=== PATIENT | male | born 1950 | race Caucasian/White ===

== ENCOUNTER 2020-12-04 05:52 | Day surgery (SDC) | payer MEDICARE, BC ==
[2020-11-27 11:42] LABS: BASOPHILS # (AUTO) 0.1 X10'3 (0-0.2); BASOPHILS % (AUTO) 0.7 % (0-1); EOSINOPHILS # (AUTO) 0.1 X10'3 (0-0.9); EOSINOPHILS % (AUTO) 1.3 % (0-6); LYMPHOCYTES # (AUTO) 2.8 X10'3 (1.1-4.8); LYMPHOCYTES % (AUTO) 39.1 % (21-51); MEAN CORPUSCULAR HEMOGLOBIN 28.8 PG (27.0-31.0); MEAN CORPUSCULAR HGB CONC 33.5 g/dL (33.0-36.5); MEAN PLATELET VOLUME 8.2 FL (7.4-10.4); MONOCYTES # (AUTO) 0.6 X10'3 (0-0.9); MONOCYTES % (AUTO) 8.2 % (2-12); NEUTROPHILS # (AUTO) 3.6 X10'3 (1.8-7.7); NEUTROPHILS % (AUTO) 50.7 % (42-75); PRE OP HEMOGLOBIN 15.1 g/dL (14.0-17.9); PRE OP PLATELET COUNT 212 X10'3 (140-440); RED BLOOD COUNT 5.23 X10'6 (4.70-6.10)
[2020-11-27 11:52] LABS: PRE OP PROTIME 10.5 SECONDS (9.0-12.0)
[2020-11-27 11:58] LABS: ALBUMIN 3.3 G/DL (3.4-5.0); ALBUMIN/GLOBULIN RATIO 0.8 (1.1-1.5); ALKALINE PHOSPHATASE 54 IU/L (46-116); BLOOD UREA NITROGEN 21 MG/DL (7-18); CALCIUM 8.4 MG/DL (8.5-10.1); CHLORIDE 107 MMOL/L (99-107); CREATININE 1.05 MG/DL (0.60-1.10); PRE OP ALT 26 U/L (30-65); PRE OP ANION GAP 7 (8-16); PRE OP AST 23 U/L (10-37); PRE OP BILIRUB, TOTAL 0.7 MG/DL (0.0-1.0); PRE OP GLUCOSE 83 MG/DL (70-104); PRE OP POTASSIUM 4.1 MMOL/L (3.4-5.1); PRE OP SODIUM 142 MMOL/L (135-145); TOTAL CARBON DIOXIDE 28.4 MMOL/L (24-32); TOTAL PROTEIN 7.5 G/DL (6.4-8.2); eGFR 70 ML/MIN
[~2020-12-04] VITALS: Ht 167.6 cm; Wt 84.2 kg
[2020-12-04] VITALS (29 sets, daily range): BP systolic 100–143; BP diastolic 39–101
[~2020-12-04 05:52] MED LIST: FLO0.4C PO; FLUT16SP2 BOTHNARES; MULT-1141 PO; cefazolin/dext.iso 2gm/100ml IV ONE; famotidine 20mg tablet PO ONE; ringers solution, lacted 1,000 ML IV SCH
[2020-12-04] MEDS ORDERED: fentaNYL/PF 50MCG/1 ML 2ML syringe ONE (07:19)
[2020-12-04] MEDS ORDERED: midazolam 1 mg/ML 2ml injection ONE (07:20)
[2020-12-04] MEDS ORDERED: ringers solution, lacted 1,000 ML IV SCH (07:25)
[2020-12-04] MEDS ORDERED: meperidine/PF 25mg/ml syringe IV PRN ×3 (07:25)
[2020-12-04] MEDS ORDERED: morphine 2 MG/ML inj. syringe IV PRN (07:25)
[2020-12-04] MEDS ORDERED: morphine 4 MG/ML inj SYRINge IV PRN (07:25)
[2020-12-04] MEDS ORDERED: ondansetron/PF 4mg/2ml inj IV PRN ×2 (07:25→09:30)
[2020-12-04] MEDS ORDERED: proCHLORperazine 10 MG/2 ml inj IV PRN ×2 (07:25→09:30)
[2020-12-04] MEDS ORDERED: ondansetron/PF 4mg/2ml inj ONE (08:56)
--- NOTE | 2020-12-04 09:09 | NUR ---
Received from OR via , accompanied by Anesthesiologist DR AREVALO and report given by Anesthesiolgist. PT PRESENTS WITH 20G PIV RIGHT FOREARM, PT WITH RODRIGUEZ CATHETER WITH DRAINAGE, URINE LIGHT PINK. VSS. Addendum: 12/04/20 at 0921 by Yvette Lynn RN, RN Amended: Links added.
[2020-12-04] MEDS ORDERED: LIDOcaine 2% 10ml TOPICAL JELLY (Urojet) TP ONE (09:30)
[2020-12-04] MEDS ORDERED: oxybutynin 5mg tablet PO PRN (09:30)
[2020-12-04] MEDS ORDERED: mag hydrox/Alum hydrox/simeth 30ml oral suspension PO PRN (09:30)
[2020-12-04] MEDS ORDERED: HYDROcodone/acetaminophen 10/325mg tab PO PRN (09:30)
[2020-12-04] MEDS ORDERED: acetaminophen 325mg tablet PO PRN (09:30)
[2020-12-04] MEDS ORDERED: zolpidem 5mg tablet PO PRN (09:30)
--- NOTE | 2020-12-04 11:03 | NUR ---
PT IS SITTING UP IN BED, DRINKING SIPS OF WATER, EATING 1 SALTINEAND 4 BITES OF APPLESAUCE. Addendum: 12/04/20 at 1105 by Yvette Lynn RN, RN Amended: Links added.
--- NOTE | 2020-12-04 11:30 | NUR ---
PACU DISCHARGE CRITERIA MET, REPORT GIVEN TO FLOOR SURGICAL, CHEO GARCIA. DENIES PAIN OR DISCOMFORT. PT IS STABLE AND ADEQUATELY RECOVERED FROM ANESTHESIA. PT HAS STABLE AIRWAY PATENCY, RESPIRATORY FUNCTION TO INCLUDE RESPIRATORY RATE AND O2 SAT. HEART RATE, BLOOD PRESSURE STABLE AND HYDRATION ADEQUATE. MENTAL STATUS IS APPROPRIATE. PAIN AND NAUSEA CONTROLLED. REFER TO PACU SPREADSHEET FOR VITAL SIGNS. Addendum: 12/04/20 at 1144 by Yvette Lynn RN, RN Amended: Links added.
[2020-12-04] MEDS: potassium cl 20mEq in 1/2 NS 1,000 ML IV SCH ×2 (12:00→19:31)
--- NOTE | 2020-12-04 12:00 | NUR ---
Patient in room [facility]. I have received report from Mimi Charge nurse and had the opportunity to ask questions and assume patient care.Patient has CBI running with rin colored urine no clots observed at bedside. patients VSS.
--- NOTE | 2020-12-04 17:59 | NUR ---
CBI continues [address] Jara into see patient. no new concerns.
--- NOTE | 2020-12-04 18:29 | NUR ---
Problems reprioritized. Patient report given, questions answered & plan of care reviewed with Mynor GARCIA. Addendum: 12/04/20 at 1902 by Patti Miller RN report given to shaina GARCIA
[2020-12-04] MEDS: ceFAZolin inj. 1,000 MG in dextrose 5%-water 50ml 50 ML IV SCH ×2 (18:47→23:48)
[2020-12-04] MEDS: docusate sod 100mg capsule PO SCH (19:31)
[2020-12-04] MEDS: tamsulosin 0.4mg capsule PO SCH (19:31)
[2020-12-05] VITALS: BP 110/60
[2020-12-05] MEDS: potassium cl 20mEq in 1/2 NS 1,000 ML IV SCH ×2 (02:00→09:30)
--- NOTE | 2020-12-05 06:35 | NUR ---
Patient in room [facility]. I have received report from Katrina GARCIA and had the opportunity to ask questions and assume patient care.
[2020-12-05 07:00] LABS: BASOPHILS # (AUTO) 0.1 X10'3 (0-0.2); BASOPHILS % (AUTO) 0.6 % (0-1); EOSINOPHILS # (AUTO) 0.1 X10'3 (0-0.9); EOSINOPHILS % (AUTO) 0.8 % (0-6); HEMATOCRIT 41.2 % (42.0-52.0); HEMOGLOBIN 14.1 g/dl (14.0-17.9); LYMPHOCYTES # (AUTO) 2.2 X10'3 (1.1-4.8); LYMPHOCYTES % (AUTO) 20.6 % (21-51); MEAN CORPUSCULAR HEMOGLOBIN 29.4 PG (27.0-31.0); MEAN CORPUSCULAR HGB CONC 34.1 g/dL (33.0-36.5); MEAN CORPUSCULAR VOLUME 86.1 FL (78-98); MONOCYTES # (AUTO) 0.8 X10'3 (0-0.9); NEUTROPHILS # (AUTO) 7.4 X10'3 (1.8-7.7); PLATELET COUNT 199 X10'3 (140-440); RED BLOOD COUNT 4.79 X10'6 (4.70-6.10); RED CELL DISTRIBUTION WIDTH 13.8 % (11.5-14.5); WHITE BLOOD COUNT 10.5 X10'3 (4.5-11.0)
[2020-12-05 07:16] LABS: ALBUMIN 2.8 G/DL (3.4-5.0); ANION GAP 7 (8-16); BLOOD UREA NITROGEN 11 MG/DL (7-18); BUN/CREATININE RATIO 9.6 (5.4-32.0); CALCIUM 8.1 MG/DL (8.5-10.1); CHLORIDE 108 MMOL/L (99-107); CREATININE 1.15 MG/DL (0.60-1.10); GLUCOSE 84 MG/DL (70-104); POTASSIUM 4.2 MMOL/L (3.5-5.1); SODIUM 141 MMOL/L (135-145); TOTAL CARBON DIOXIDE 25.9 MMOL/L (24-32); eGFR 63 ML/MIN
[2020-12-05] MEDS ORDERED: pantoprazole 40mg Tablet.DR PO SCH (07:30)
[2020-12-05 08:00] VITALS: BP 103/58
[2020-12-05] MEDS ORDERED: fluticasone nasal spray 16GM bottle NS SCH (08:00)
[2020-12-05] MEDS ORDERED: polyethylene glycol 3350 17gm powd pack PO SCH (08:55)
[2020-12-05] MEDS: tamsulosin 0.4mg capsule PO SCH (09:04)
[2020-12-05] MEDS: docusate sod 100mg capsule PO SCH (09:04)
[2020-12-05] MEDS: ceFAZolin inj. 1,000 MG in dextrose 5%-water 50ml 50 ML IV SCH (09:04)
[2020-12-05] MEDS ORDERED: HYDR-3965 PO (10:25)
[2020-12-05] MEDS ORDERED: CEPH500C2 PO (10:28)
[2020-12-05] MEDS ORDERED: DOCU100C40 PO (10:28)
[2020-12-05 11:00] VITALS: BP 101/56
--- NOTE | 2020-12-05 12:35 | NUR ---
Pt is A & O x4 and in no apparent distress. Pt verbalizes understanding of all DC orders and able to teach back process of higgins care. Pt and educated on higgins care, clean changes and supplies were given . Pt understands the importance of following up with PCP and Dr Jara. Pt put leg bag on and given a new night bag. pt dressed and carried belongings to car. Wheeled to the car with his . IV meds intact.
== END 2020-12-05 12:30 | disposition home or self-care (01) ==
LOC: PAS 05:52 → SUR 3N 09:27 → PAS 12-05 12:30
PROVIDERS: ATTEND Urology
DX: N40.1 Benign prostatic hyperplasia with lower urinary tract symptoms (principal); N13.8 Other obstructive and reflux uropathy; N41.0 Acute prostatitis; G43.909 Migraine, unspecified, not intractable, without status migrainosus; Z88.8 Allergy status to other drugs, medicaments and biological substances; Z98.890 Other specified postprocedural states; Z79.899 Other long term (current) drug therapy; Z79.01 Long term (current) use of anticoagulants
CPT/HCPCS: 36415; 52601; 80048; 80053; 82948; 85025; 85610; 85730; 86885; 86900; 86901; 93005; J0690; J2250; J2405; J3010; J7060; A4346; A4355; A4615; G0378; J3480; J7120

== ENCOUNTER 2020-12-05 17:38 | Emergency (ER) | payer MEDICARE, BC ==
[~2020-12-05] VITALS: Ht 167.6 cm; Wt 83.6 kg
[~2020-12-05 17:38] MED LIST changes: +CEPH500C2 PO; +DOCU100C40 PO; +HYDR-3965 PO; -cefazolin/dext.iso 2gm/100ml IV ONE; -famotidine 20mg tablet PO ONE; -ringers solution, lacted 1,000 ML IV SCH
--- NOTE | 2020-12-05 19:25 | NUR ---
leg bag is draining pink tinged urine, emptied higgins bag of 200ml of urine, also deflated balloon per request of Dr Barillas of 30cc of fluid and reinflated, pt krupa well, no pain noted. Higgins continues to drain urine, pt is resting quietly
[2020-12-05 19:46] VITALS: BP 140/96
== END 2020-12-05 19:47 | disposition home or self-care (01) ==
LOC: ER 19:16
DX: N48.89 Other specified disorders of penis (principal); R31.9 Hematuria, unspecified; Z79.2 Long term (current) use of antibiotics; Z79.899 Other long term (current) drug therapy; Z46.6 Encounter for fitting and adjustment of urinary device
CPT/HCPCS: 99281

== ENCOUNTER 2024-12-18 09:06 | Outpatient (CLI) | payer MEDICARE, BC ==
[~2024-12-18 09:06] MED LIST changes: -CEPH500C2 PO; -FLO0.4C PO; -HYDR-3965 PO; +TAMS-55 PO
--- NOTE | 2024-12-19 17:59 | RADIOLOGY REPORT ---
CLINICAL INDICATION: PAIN IN THE RIGHT HIP, TROCHANTERIC BURSITIS OF R HIP COMPARISON: None TECHNIQUE: Multiplanar, multi-sequence MRI of the right hip was performed without intravenous contrast. The contralateral hip is included on some of the sequences. Contrast: None INTERPRETATION: Joint space: There is no effusion. Right hip joint space narrowing. There is chondral thinning in t he superolateral femoral head. No full-thickness chondral defect. No significant joint effusion or synovitis. The contralateral hip is included on the large [id number] images and demonstrates left hip osteophytes and labral degeneration. Bones and articular cartilage: There is no fracture, bone marrow edema or avascular necrosis. The al ignment is normal. There is no focal articular cartilage defect. Tendons, muscles and bursae: There is no tendon abnormality. Regional muscles are normal in bulk and signal characteristics. There is no evidence of bursitis. Acetabular labrum: Chronic degeneration and tear of the anterior superior labrum. IMPRESSION: 1. Mild right hip osteoarthritis. 2. Degeneration and tear of the anterior superior right acetabular labrum.
== END 2024-12-18 23:59 | disposition home or self-care (01) ==
LOC: MRI02 09:06
PROVIDERS: ATTEND Pediatrics Sports Medicine
DX: S73.191A Other sprain of right hip, initial encounter (principal); M16.11 Unilateral primary osteoarthritis, right hip; M25.851 Other specified joint disorders, right hip; M25.751 Osteophyte, right hip; M25.551 Pain in right hip; M70.61 Trochanteric bursitis, right hip; M25.562 Pain in left knee; M17.12 Unilateral primary osteoarthritis, left knee; X58.XXXA Exposure to other specified factors, initial encounter; Y93.89 Activity, other specified; Y92.89 Other specified places as the place of occurrence of the external cause; Y99.8 Other external cause status
CPT/HCPCS: 73721

== ENCOUNTER 2025-01-03 17:21 | Emergency (ER) | payer MEDICARE, BC ==
[~2025-01-03] VITALS: Ht 167.6 cm; Wt 76.4 kg
[2025-01-03 17:24] VITALS: BP 144/84; PULSE 110; RESP 16; O2SAT 97
--- NOTE | 2025-01-03 17:50 | RADIOLOGY REPORT ---
CLINICAL INDICATION: LEFT KNEE PAIN TECHNIQUE: 3 views, DI KNEE, COMP 4 VW MIN Comparison: MR MRI LOWER EXTREMITY RIGHT on DOS: 12/18/24 FINDINGS/IMPRESSION: There is no evidence of acute fracture or dislocation. Moderate degenerative arthrosis of the medial knee compartment. Soft tissues are unremarkable.
--- NOTE | 2025-01-03 18:42 | Physician Documentation ---
History of Present Illness ~ Chief Complaint: Knee Pain Stated Complaint: L KNEE PAIN Time Seen by MD: 17:42 HPI Patient is seen today with complaints of left-sided knee pain that is started acutely after he was doing physical therapy exercises actually design for his left knee. Patient states his pain is lateral in the lateral aspect of his left knee. He denies any swelling or erythema and denies any fevers or chills and has no other concern or complaint at this time. Tetanus witin 5 years: Yes Medication Reconciliation Allergies: Coded Allergies: No Known Allergies (Unverified , 12/03/20) Scheduled Fluticasone Propionate (Flonase), 2 SPRAYS BOTHNARES DAILY, (Reported) Mu-Vits-Min Th/Lycopene/Lutein (Centrum Silver Tablet), 1 EACH PO DAILY, (Reported) Tamsulosin Hcl* (Flomax*), 1 TAB PO BID, (Reported) Scheduled PRN Docusate Sodium (Docusate Sodium), 100 MG PO BID PRN for constipation Past Medical History Past Medical History: No Pertinent History Past Surgical History: noncontributory Drug Use: none Lives In: Home Review of Systems Constitutional: Denies: chills, fever, weakness Eyes: Denies: pain, blurred vision ENT: Denies: ear pain, nose pain, throat pain, mouth pain Respiratory: Denies: cough, shortness of breath Cardiovascular: Denies: chest pain, palpitations Gastrointestinal: Denies: abdominal pain, nausea, vomiting Genitourinary: Denies: burning, dysuria Male Genitalia: Denies: penile discharge, testicular pain Neurological: Denies: headache, dizziness Musculoskeletal: Denies: pain, swelling Integumentary: Denies: rash, lesions Allergic/Immunologic: Denies: hives, itching Hematologic/Lymphatic: Denies: no symptoms reported Psychiatric: Denies: depression, anxiety Physical Exam Vital Signs: Temperature: 96.7, Source: Temporal, Heart Rate: 110, Respiratory Rate: 16, BP: 144/84, Pulse Oximetry: 97, Weight: 76.360 Physical Exam General: Awake and Alert, no acute distress. HEENT: Conjunctiva pink, Sclera clear, Mucus Membranes moist. Neck: Supple without masses and tenderness. Resp: Unlabored. Lungs clear to auscultation bilaterally. Heart: Regular Rate and rhythm, normal S1 and S2 without murmur, rub or gallop. Musculoskeletal: Patient on exam has no significant swelling of the right knee and has mild tenderness to palpation of the lateral joint line of the right knee. Patient is neurovascularly intact distally. Motor function is intact distally. Extremities: No cyanosis,clubbing or edema. Skin: Warm and Dry. Progress Results/Orders Results/Orders Vital Signs 01/03/25 01/03/25 17:24 18:48 Temp 96.7 96.7 Pulse 110 Resp 16 B/P (MAP) 144/84 Pulse Ox 97 EKG/XRAY/CT/US/VASC/MRI Bone/Soft Tissue X-Ray (Ext.) : Additional Comment Patient on exam does have joint space narrowing of the medial aspect of the left knee, no sign of acute fracture, no osteolytic or blastic lesions. DIAGNOSTIC RADIOLOGY Patient: ANDRA MCALLISTER Medical Record: [id number] [facility] : 1950, Age: 74 Sex: Male Location: ER Patient Status: [facility] ER Service Date/Time: 01/03/251726 Ordering Physician: AMI LAWSON MD Exam: KNEE, COMP 4 VW MIN CLINICAL INDICATION: LEFT KNEE PAIN TECHNIQUE: 3 views, DI KNEE, COMP 4 VW MIN Comparison: MR MRI LOWER EXTREMITY RIGHT on DOS: 12/18/24 FINDINGS/IMPRESSION: There is no evidence of acute fracture or dislocation. Moderate degenerative arthrosis of the medial knee compartment. Soft tissues are unremarkable. Electronically Signed by:ADARSH GAYTAN MD Date & Time: 01/03/251746 Dictated by: ADARSH GAYTAN MD Dictation date and time: 01/03/251746 Primary Care Provider: NO PRIMARY CARE PROVIDER cc: AMI LAWSON MD ~ Medical Decision Making Findings Patient is seen today with complaints of left-sided knee pain that is started acutely after he was doing physical therapy exercises actually design for his left knee. Patient states his pain is lateral in the lateral aspect of his left knee. He denies any swelling or erythema and denies any fevers or chills and has no other concern or complaint at this time. Patient did have x-ray of left knee that showed no sign of acute fracture or acute issue. Patient will follow up with epic ambulatory specialists for further eval and treatment and follow up with physical therapy for pain in his left knee. Patient will continue Voltaren gel and will take Tylenol as needed for symptomatic relief. Patient will return to ED with any worsening, concerning or changing symptoms. Patient states he does have a gastric ulcer and can not take NSAIDs. Departure Disposition: HOME / SELF CARE / HOMELESS Impression: Primary Impression: Knee pain Qualified Codes: M25.562 - Pain in left knee Condition: Stable Discharge Instructions: Acute Knee Pain, Adult Additional Instructions: Patient did have x-ray of left knee that showed no sign of acute fracture or acute issue. Patient will follow up with epic ambulatory specialists for further eval and treatment and follow up with physical therapy for pain in his left knee. Patient will continue Voltaren gel and will take Tylenol as needed for symptomatic relief. Patient will return to ED with any worsening, concerning or changing symptoms. Patient states he does have a gastric ulcer and can not take NSAIDs. Referrals: NO PRIMARY CARE PROVIDER (PCP) Prescriptions Hydrocodone Bit/Acetaminophen 5/325 MG ([place] 5/325 MG) 5 Mg/325 Mg Tablet 1-2 TAB PO Q6H PRN for pain for 3 Days, #24 TAB Prov: MILTON MCQUEEN 01/03/25 Signature Scribe Signature: No scribe Attestation: No scribe MILTON MCQUEEN Jan 03, 2025 18:42
[2025-01-03 18:48] VITALS: TEMP 96.7
[2025-01-03] MEDS ORDERED: HYDR-3965 PO (21:51)
== END 2025-01-03 18:51 | disposition home or self-care (01) ==
LOC: ER 17:22
DX: M25.562 Pain in left knee (principal)
CPT/HCPCS: 73564; 99283